=== PATIENT | male | born 1980 | race Caucasian/White ===

== ENCOUNTER 2021-10-11 14:27 | Emergency (ER) | payer MEDICAID ==
[~2021-10-11] VITALS: Ht 165.1 cm; Wt 71.2 kg
[2021-10-11 14:54] VITALS: BP 147/79
[2021-10-11] MEDS ORDERED: IBUPROFEN 600 MG TAB PO ONE (15:15)
--- NOTE | 2021-10-11 15:44 | NUR ---
PT'S LEFT 3RD DIGIT COLE TAPED AND PLACED IN ORTHO-SHOE.
--- NOTE | 2021-10-11 15:45 | NUR ---
40YO MALE PT C/O R 3RD DIGIT TOE PAIN X1HOUR. PT STATES HE STUBBED TOE AGAINST DOOR FRAME. PT TOE PRESENTS W/ MILD BRUISING AND VISIBLE DEFORMALITITY , TENDER TO TOUCH. PT UNABLE TO MOVE TOE, DENIES NUMBING OR LOSS OF SENSATION, CAP REFILL <3. DENIES OTHER INJURY. DENIES N/V/D OR CHEST PAIN. PT AAOX4, NO VISIBLE DISTRESS, RESPIRATIONS EVEN AND UNLABORED. HX: DENIES NKA
[2021-10-11] MEDS ORDERED: IBUP-2213 PO (16:21)
[2021-10-11 16:32] VITALS: BP 125/84
--- NOTE | 2021-10-11 16:32 | NUR ---
Patient discharged with v/s stable. Written and verbal after care instructions FOR TOE DISLOCATION given and explained. Patient alert, oriented and verbalized understanding of instructions. Ambulatory with steady gait. All questions addressed prior to discharge. ID band removed. Patient advised to follow up with PMD. Rx of IBUPROFEN given. Opportunity to ask questions provided and answered.
== END 2021-10-11 16:32 | disposition home or self-care (01) ==
LOC: MED 14:27
DX: S93.122A Dislocation of metatarsophalangeal joint of left great toe, initial encounter (principal); R03.0 Elevated blood-pressure reading, without diagnosis of hypertension; W22.8XXA Striking against or struck by other objects, initial encounter; Y93.89 Activity, other specified; Y92.89 Other specified places as the place of occurrence of the external cause; Y99.8 Other external cause status
CPT/HCPCS: 73660; 99284

== ENCOUNTER 2023-09-04 17:38 | Emergency (ER) | payer MEDICAID, OTHER ==
[~2023-09-04] VITALS: Ht 165.1 cm; Wt 73.5 kg
[~2023-09-04 17:38] MED LIST: IBUP-2213 PO
[2023-09-04 18:02] VITALS: BP 125/89; PULSE 90; RESP 18; TEMP 98.7; O2SAT 100
[2023-09-04] MEDS ORDERED: IBUP-2213 PO (18:45)
[2023-09-04] MEDS ORDERED: cefTRIAXone 500 MG VIAL ONE (18:45)
[2023-09-04] MEDS ORDERED: DOXY-487 PO (18:45)
[2023-09-04] MEDS ORDERED: LIDOCAINE MPF 1% 5 ML ONE (18:46)
[2023-09-04] MEDS: cefTRIAXone 500 MG in LIDOCAINE MPF 1% 1 ML IM ONE (18:58)
[2023-09-04 19:10] VITALS: BP 125/89; PULSE 90; RESP 18; TEMP 98.7; O2SAT 100
== END 2023-09-04 19:10 | disposition home or self-care (01) ==
LOC: MED 17:38
DX: N39.0 Urinary tract infection, site not specified (principal); R03.0 Elevated blood-pressure reading, without diagnosis of hypertension; Z79.1 Long term (current) use of non-steroidal anti-inflammatories (NSAID)
CPT/HCPCS: 81002; 87086; 87491; 96372; 99283; J0696; J2001